=== PATIENT | female | born 1960 | race Caucasian/White ===

== ENCOUNTER 2021-04-01 13:12 | Outpatient (CLI) | payer OTHER | END 2021-04-01 13:13 | disposition home or self-care (01) | LOC: CSHMAMMO 13:12 | PROVIDERS: ATTEND Internal Medicine | DX: Z12.31 Encounter for screening mammogram for malignant neoplasm of breast (principal); Z91.89 Other specified personal risk factors, not elsewhere classified | CPT/HCPCS: 77063; 77067 ==

== ENCOUNTER 2021-04-25 08:35 | Outpatient (CLI) | payer OTHER | END 2021-04-25 08:36 | disposition home or self-care (01) | LOC: CSHCT 08:35 | PROVIDERS: ATTEND Specialist | DX: J32.9 Chronic sinusitis, unspecified (principal) ==

== ENCOUNTER 2021-09-04 08:56 | Outpatient (CLI) | payer OTHER ==
[2021-09-04] MEDS ORDERED: Iopamidol 300 61% 100 ML VIAL FS ONE (10:14)
== END 2021-09-04 08:57 | disposition home or self-care (01) ==
LOC: CSHCT 08:56
PROVIDERS: ATTEND Internal Medicine
DX: R31.0 Gross hematuria (principal); R31.29 Other microscopic hematuria
CPT/HCPCS: 74178; 82565

== ENCOUNTER 2022-05-19 08:13 | Outpatient (CLI) | payer OTHER | END 2022-05-19 08:14 | disposition home or self-care (01) | LOC: CSHMAMMO 08:13 | PROVIDERS: ATTEND Internal Medicine | DX: Z12.31 Encounter for screening mammogram for malignant neoplasm of breast (principal); Z91.89 Other specified personal risk factors, not elsewhere classified | CPT/HCPCS: 77063; 77067 ==